=== PATIENT | male | born 1965 | race Caucasian/White ===

== ENCOUNTER 2017-06-16 13:15 | Emergency (ER) | payer SELFPAY ==
[~2017-06-16] VITALS: Ht 152.4 cm; Wt 59.0 kg
[2017-06-16 13:19] VITALS: BP 142/77; PULSE 101; RESP 16; TEMP 98; O2SAT 96
[2017-06-16] MEDS ORDERED: LIDOCAINE 2%/EPINEPHrine 1:100,000 20ML MDV NERV BLOCK ONE ×2 (14:00)
[2017-06-16] MEDS ORDERED: IBUP800T23 PO ×2 (14:30)
[2017-06-16] MEDS ORDERED: BACT800T5 PO ×2 (14:30)
--- NOTE | 2017-06-16 14:34 | PD ---
HPI Chief Complaint: Skin Problem Time Seen by Provider: 13:51 Travel History International Travel<30 days: No Contact w/Intl Traveler<30days: No Traveled to known affect area: No History of Present Illness HPI 51-year-old male presents to emergency department with questionable abscess in the left posterior upper thigh which he states of present for several weeks. He states it's gotten worse in the last 24 hours. He states his head drainage from it previously but not this time. He denies fever, chills , or other symptoms. He has pain of 8 out of 10. Worse with sitting. He has no known drug allergies. PFSH Past Medical History Coronary Artery Disease: Yes Diminished Hearing: No Neurologic: Yes (PT. CLAIMS HE SUFFERS FROM SEIZURE.) Immunizations Current: Yes Myocardial Infarction: Yes Seizures: Yes Past Surgical History Neurologic Surgery: Yes (brain aneurysm) Social History Alcohol Use: Yes (daily) Tobacco Use: Yes Substance Use: No Allergies-Medications (Allergen,Severity, Reaction): Coded Allergies: No Known Allergies (Unverified , 06/08/16) Reported Meds & Prescriptions Reported Meds & Active Scripts Active Ibuprofen 800 Mg Tab 800 Mg PO Q8H PRN Bactrim DS (Sulfamethoxazole-Trimethoprim) 800-160 Mg Tab 1 Tab PO BID Review of Systems Except as stated in HPI: all other systems reviewed are Neg General / Constitutional: No: Fever, Chills Eyes: No: Visual changes HENT: No: Headaches Cardiovascular: No: Chest Pain or Discomfort Respiratory: No: Shortness of Breath Gastrointestinal: No: Abdominal Pain Genitourinary: No: Dysuria Musculoskeletal: No: Pain Skin: Positive Lesions, No Rash Neurologic: No: Weakness Psychiatric: No: Depression Endocrine: No: Polydipsia Hematologic/Lymphatic: No: Easy Bruising Physical Exam Narrative GENERAL: Patient appears in mild distress. SKIN: Warm and dry. Normal color. Normal turgor. Patient has obvious abscess to the right posterior medial proximal thigh with pointing, and localized induration and erythema. HEAD: Atraumatic. Normocephalic. EYES: Pupils equal and round. No scleral icterus. No injection or drainage. ENT: No nasal bleeding or discharge. Mucous membranes pink and moist. Pharynx is clear. Airway is patent. NECK: Trachea midline. Supple and nontender. CARDIOVASCULAR: Regular rate and rhythm. RESPIRATORY: No accessory muscle use. Clear to auscultation. Breath sounds equal bilaterally. MUSCULOSKELETAL: Extremities without clubbing, cyanosis, or edema. No obvious deformities. NEUROLOGICAL: Awake and alert. No obvious cranial nerve deficits. Motor grossly within normal limits. Five out of 5 muscle strength in the arms and legs. Normal speech. PSYCHIATRIC: Appropriate mood and affect; insight and judgment normal. Data Data Last Documented VS Vital Signs Date Time Temp Pulse Resp B/P (MAP) Pulse Ox O2 Delivery O2 Flow Rate FiO2 06/16/17 13:19 98.0 101 16 142/77 (98) 96 Orders Orders Lidocai-Epi 2%-1:100,000 Inj (Xylocaine- (06/16/17 14:00) MDM Medical Decision Making Medical Screen Exam Complete: Yes Emergency Medical Condition: Yes Differential Diagnosis Cellulitis. Abscess. Sebaceous cyst. Ingrown hair. Narrative Course I&D of abscess is performed. Patient treated with Bactrim DS twice a day. #14. Patient given ibuprofen 800 mg 3 times a day #30. Wound care is discussed with the patient. Patient is to follow-up in 2 days for wound check and packing removal. Patient follow-up sooner as needed. Procedures Procedure Narrative After the risks and benefits were discussed the following procedure was performed: INCISION AND DRAINAGE OF ABSCESS: The area was prepped and was sterilely draped. A subcutaneous wheal of 2 % Xylocaine with lidocaine with a total number 3 mL was used to anesthetize the area. The area was properly anesthetized. A number 11 scalpel was used to make a 1-cm incision across the area of the abscess. Cultures were obtained. The abscess was drained an irrigated with normal saline. Quarter inch iodoform packing was placed in the wound. Sterile dressing applied. Patient advised to have packing removed in two days. Diagnosis Primary Impression: Abscess of left thigh Patient Instructions: Abscess Incision and Drainage (DC), General Instructions Additional Instructions: I&D of abscess is performed. Patient treated with Bactrim DS twice a day. #14. Patient given ibuprofen 800 mg 3 times a day #30. Wound care is discussed with the patient. Patient is to follow-up in 2 days for wound check and packing removal. Patient follow-up sooner as needed. Scripts Ibuprofen (Ibuprofen) 800 Mg Tab 800 MG PO Q8H Y for Pain/Inflammation, #30 TAB 0 Refills Prov: Ander Young MD 06/16/17 Sulfamethoxazole-Trimethoprim (Bactrim DS) 800-160 Mg Tab 1 TAB PO BID for Infection, #14 TAB 0 Refills Prov: Ander Young MD 06/16/17 Disposition: 01 DISCHARGE HOME Condition: Stable Pascual Cohen Jun 16, 2017 14:34
[2017-06-18] MEDS ORDERED: HYDR-3533 PO ×2 (12:36)
== END 2017-06-16 15:03 | disposition home or self-care (01) ==
LOC: NEPK 13:15
DX: L02.416 Cutaneous abscess of left lower limb (principal); B96.89 Other specified bacterial agents as the cause of diseases classified elsewhere
CPT/HCPCS: 10061; 86403; 87070; 87185; 87205